=== PATIENT | male | born 1955 | race Caucasian/White ===

== ENCOUNTER 2017-04-30 11:40 | Day surgery (SDC) | payer OTHER ==
[~2017-04-30] VITALS: Ht 185.4 cm; Wt 131.0 kg
[~2017-04-30 11:40] MED LIST: LISI1TAB11 PO; METF850T2 PO; PRAV40TA PO; Sodium Chloride LOK Flush 10 mL Syringe IV PRN; fentaNYL-PF 50 mCg/mL 2 mL Inj IVPUSH PRN
[2017-04-30 12:10] VITALS: BP 135/76; PULSE 52; RESP 14; O2SAT 95
[2017-04-30] MEDS: 0.9% Sodium Chloride 1,000 ML IV PRN ×2 (14:18→14:29)
[2017-04-30 14:33] VITALS: BP 148/87; PULSE 50; RESP 14; O2SAT 96
[2017-04-30 14:42] VITALS: BP 155/79; PULSE 65; RESP 14; O2SAT 99
--- NOTE | 2017-04-30 15:00 | ENDO ---
[address] [address] ENDOSCOPY PROCEDURE PATIENT: DEEPA YEBOAH : 1955 MR#: [id number] ADMIT: 04/30/2017 JOB ID: [id number] DATE: 04/30/2017 PRIMARY PROVIDER: Janice Lucas M.D. PROCEDURE: Colonoscopy with cold forceps polypectomy. INDICATIONS: A 61-year-old male with a personal history of colon polyps returning for surveillance. EQUIPMENT: PCF H 180 AL. SEDATION: 1. 4 mg Versed. 2. 100 mcg fentanyl. COMPLICATIONS: None identified. BOWEL PREPARATION: Fair. PROCEDURAL INFORMATION: After the risks and benefits were explained, written and verbal informed consent was obtained. The patient was brought into the endoscopy suite and placed into the left lateral decubitus position. Sedation was achieved as above. A digital rectal examination accomplished. Moderate internal hemorrhoids noted. The scope was introduced into the rectum and advanced to the cecum as identified by the appendiceal orifice and ileocecal valve. The scope was slowly withdrawn to carefully examine the mucosa for any defects or lesions. Multiple direct views were made through the dentate line for exclusion of pathology. The colon was decompressed. The scope removed from the patient who tolerated the procedure well. FINDINGS: In the ascending colon, there was an approximately 4-5 mm sessile polyp removed with cold forceps. No other significant pathology was appreciated throughout. The patient had a lengthy colon. ENDOSCOPIC DIAGNOSES: 1. Diminutive colon polyp. 2. Hemorrhoids. 3. Long colon. RECOMMENDATIONS: 1. Await histopathology. 2. Repeat colonoscopy five years.
--- NOTE | 2017-05-02 13:59 | PATH ---
SURGICAL PATHOLOGY Attending Physician:Lisa Tellez CASE STATUS: Signed Out PATIENT NAME: DEEPA YEBOAH PID: [id number] : 1955 DATE COLLECTED:04/30/2017 00:00 SPECIMEN: Colon, Polyp CLINICAL HISTORY: 1). ASCENDING COLON POLYP FINAL DIAGNOSIS: 1.ASCENDING COLON POLYP: TUBULAR ADENOMA. ICD10 D12.2 GROSS DESCRIPTION: Received in formalin, labeled with the patient' s name and "ascending polyp", is one fragment of schulz, soft tissue measuring 0.1 x 0.1 x 0.1 cm. The fragment is totally submitted in one cassette. ([id number]) MICRO DESCRIPTION: See diagnosis. ICD-9 CODES: CPT CODES: 1: 58039 Electronically Signed Out Norman Nguyễn MD [facility] [address] [facility], [place] [address] Technical component performed at [facility], [address] [place] [address] Ave[address], [place], [address]
== END 2017-04-30 23:59 | disposition home or self-care (01) ==
LOC: END 11:40
PROVIDERS: ATTEND Internal Medicine Gastroenterology
DX: Z12.11 Encounter for screening for malignant neoplasm of colon (principal); D12.2 Benign neoplasm of ascending colon; K64.8 Other hemorrhoids; Z86.010 Personal history of colon polyps; H91.3 Deaf nonspeaking, not elsewhere classified; I10 Essential (primary) hypertension; E78.5 Hyperlipidemia, unspecified; E11.42 Type 2 diabetes mellitus with diabetic polyneuropathy; R53.1 Weakness; Z79.84 Long term (current) use of oral hypoglycemic drugs
CPT/HCPCS: 45380; G0500; J2250; J3010; J7030